=== PATIENT | male | born 1950 | race Caucasian/White ===

== ENCOUNTER 2016-11-24 12:10 | Emergency (ER) | payer MEDICARE, OTHER ==
[~2016-11-24] VITALS: Ht 185.4 cm; Wt 100.0 kg
[2016-11-24 12:13] VITALS: BP 139/72; PULSE 70; RESP 16; TEMP 98.7; O2SAT 95
--- NOTE | 2016-11-24 12:47 | PD ---
Physical Exam Time Seen by Provider: 12:44 Narrative 66 y/o male here for evaluation of L ear discomfort. he reports water got in his left ear 3-4 days ago and he has had muffled hearing since. Vital signs reviewed. Seen at triage desk. Awaiting bed placement. Data Data Last Documented VS Vital Signs Date Time Temp Pulse Resp B/P Pulse Ox O2 Delivery O2 Flow Rate FiO2 11/24/16 12:13 98.7 70 16 139/72 95 Room Air [facility] Medical Record Reviewed: Yes Supervised Visit with CARMENCITA: Santo Garvey Nov 24, 2016 12:47
--- NOTE | 2016-11-24 14:40 | PD ---
HPI Chief Complaint: ENT Complaint Time Seen by Provider: 14:26 Travel History International Travel<30 days: No Contact w/Intl Traveler<30days: No Traveled to known affect area: No History of Present Illness HPI 66-year-old male presents to [facility] department for evaluation of difficulty hearing out of his left ear. Patient states he normally wears hearing aids but he got into the water 2-3 days ago and since then he feels as though his hearing has gotten worse. He attempted using a Q-tip which only worsen this. Denies any pain. No fever chills. No injury. No other symptoms to report. PFSH Past Medical History Cardiovascular Problems: Yes (HTN, HYPERCHOLESTEROLEMIA, CARDIOVASCULAR STENTS X 2) Social History Tobacco Use: No Allergies-Medications (Allergen,Severity, Reaction): Coded Allergies: No Known Allergies (Unverified , 11/24/16) Review of Systems Except as stated in HPI: all other systems reviewed are Neg Physical Exam Narrative GENERAL: Well-nourished, well-developed elderly male patient, in no acute distress HEAD: Normocephalic. Atraumatic. No mastoid tenderness. EARS: Bilateral pinnae and external canals appear within normal limits. The right tympanic membranes without erythema, dullness or perforation. The left tympanic membrane view is obscured due to large amount of cerumen. After this has been removed and irrigation, the canal is erythematous. Membrane is dull but intact. EYES: No scleral icterus. No injection or drainage. NECK: Supple, trachea midline. No JVD or lymphadenopathy. CARDIOVASCULAR: Regular rate and rhythm without murmurs, gallops, or rubs. RESPIRATORY: Breath sounds equal bilaterally. No accessory muscle use. Data Data Last Documented VS Vital Signs Date Time Temp Pulse Resp B/P Pulse Ox O2 Delivery O2 Flow Rate FiO2 11/24/16 12:13 98.7 70 16 139/72 95 Room Air MDM Medical Decision Making Medical Screen Exam Complete: Yes Emergency Medical Condition: Yes Medical Record Reviewed: Yes Differential Diagnosis Cerumen impaction versus otitis media versus otitis externa versus perforated tympanic membrane Narrative Course 66-year-old male presents to emergency department for evaluation of difficulty hearing in his left ear, worse than normal. Patient has significant cerumen impaction. Ear is irrigated by the nurse and the tympanic membrane is revealed. Patient does report increased ability to hear. He'll be started on antibiotic drops for an otitis externa. He is encouraged to follow-up with his primary care provider and return immediately with any acute worsening of symptoms. Diagnosis Primary Impression: Impacted cerumen of left ear Additional Impression: Otitis externa of left ear Qualified Code: H60.92 - Otitis externa of left ear, unspecified chronicity, unspecified type Referrals: Primary Care Physician Patient Instructions: Cerumen Impaction (ED), General Instructions, Otitis Externa (ED) Additional Instructions: Avoid Q-tip use Follow-up with your primary care provider Do not use your hearing aid in your left ear until infection has resolved Return immediately with any acute worsening symptoms Med/Other Pt SpecificInfo: Prescription(s) given Disposition: 01 DISCHARGE HOME Condition: Stable Charlene Meng Nov 24, 2016 14:40
== END 2016-11-24 14:56 | disposition home or self-care (01) ==
LOC: NEPK 12:10
DX: H61.22 Impacted cerumen, left ear (principal); H60.92 Unspecified otitis externa, left ear; I10 Essential (primary) hypertension; E78.00 Pure hypercholesterolemia, unspecified
CPT/HCPCS: 99283

== ENCOUNTER 2017-09-09 19:52 | Emergency (ER) | payer MEDICARE, OTHER ==
[~2017-09-09] VITALS: Ht 185.4 cm; Wt 100.0 kg
[2017-09-09 19:59] VITALS: BP 135/79; PULSE 70; RESP 20; TEMP 98.5; O2SAT 96
[2017-09-09] MEDS ORDERED: AMLO10 PO (20:09)
[2017-09-09] MEDS ORDERED: blood thinner (20:09)
[2017-09-09] MEDS ORDERED: metoprolol PO (20:09)
--- NOTE | 2017-09-09 20:10 | PD ---
HPI Chief Complaint: Nosebleed Time Seen by Provider: 19:59 Travel History International Travel<30 days: No Contact w/Intl Traveler<30days: No Traveled to known affect area: No History of Present Illness HPI 67-year-old male presents emergency department for evaluation of epistaxis that began approximately 1 hour ago. Patient states he is unable to get the nosebleed to stop. He states this has happened once before and he required packing. Patient denies any trauma. Denies any pain. Denies any recent illness or fever. He states there was nothing out of the ordinary that occurred prior to this. He is on a anticoagulant but is uncertain which one. He denies any other symptoms of bleeding. He has no other symptoms to report. [facility] Past Medical History Cardiovascular Problems: Yes (HTN, HYPERCHOLESTEROLEMIA, CARDIOVASCULAR STENTS X 2) High Cholesterol: Yes Hypertension: Yes Tetanus Vaccination: < 5 Years Influenza Vaccination: Yes Social History Alcohol Use: No Tobacco Use: No Substance Use: No (hx when younger) Allergies-Medications (Allergen,Severity, Reaction): Coded Allergies: No Known Allergies (Unverified Allergy, Unknown, 09/10/17) Reported Meds & Prescriptions Reported Meds & Active Scripts Active Reported Bupropion HCl ER 24 HR (Bupropion HCl) 150 Mg Tab 150 Mg PO DAILY Donepezil 5 Mg Tab 5 Mg PO HS Citalopram (Citalopram Hydrobromide) 10 Mg Tab 10 Mg PO DAILY Atorvastatin (Atorvastatin Calcium) 40 Mg Tab 40 Mg PO HS Metoprolol Succinate ER 24 HR (Metoprolol Succinate) 100 Mg Tab 100 Mg PO DAILY Valsartan-Hydrochlorothiazide 80-12.5 Mg Tab 1 Tab PO DAILY Aspirin 81 Mg Chew 81 Mg CHEW DAILY Norvasc (Amlodipine Besylate) 10 Mg Tab Mg PO DAILY Review of Systems Except as stated in HPI: all other systems reviewed are Neg Physical Exam Narrative GENERAL: Well-nourished, well-developed male patient in no acute distress SKIN: Focused skin assessment warm/dry. HEAD: Normocephalic. Atraumatic EYES: No scleral icterus. No injection or drainage. ENT: Mucosa pink and moist. No erythema or exudates. No uvular edema. No uvular , palatal, or tonsillar deviation. Airway patent. Nasal turbinates appear normal with nasal blood, without purulent drainage or septal hematoma. Active bleeding from both nares. NECK: Supple, trachea midline. No JVD or lymphadenopathy. CARDIOVASCULAR: Regular rate and rhythm without murmurs, gallops, or rubs. RESPIRATORY: Breath sounds equal bilaterally. No accessory muscle use. GASTROINTESTINAL: Abdomen soft, non-tender, nondistended. MUSCULOSKELETAL: No cyanosis, or edema. BACK: Nontender without obvious deformity. No CVA tenderness. Data Data Last Documented VS Vital Signs Date Time Temp Pulse Resp B/P (MAP) Pulse Ox O2 Delivery O2 Flow Rate FiO2 09/09/17 19:59 98.5 70 20 135/79 (97) 96 Orders Orders Complete Blood Count With Diff (09/09/17 20:09) Basic Metabolic Panel (Bmp) (09/09/17 20:09) Coag Profile (09/09/17 20:09) Ed Discharge Order (09/09/17 21:16) Labs Laboratory Tests Test 09/09/17 20:17 White Blood Count 7.4 TH/MM3 Red Blood Count 4.71 MIL/MM3 Hemoglobin 14.7 GM/DL Hematocrit 43.7 % Mean Corpuscular Volume 92.7 FL Mean Corpuscular Hemoglobin 31.2 PG Mean Corpuscular Hemoglobin Concent 33.7 % Red Cell Distribution Width 14.5 % Platelet Count 279 TH/MM3 Mean Platelet Volume 8.3 FL Neutrophils (%) (Auto) 57.7 % Lymphocytes (%) (Auto) 22.1 % Monocytes (%) (Auto) 13.4 % Eosinophils (%) (Auto) 5.9 % Basophils (%) (Auto) 0.9 % Neutrophils # (Auto) 4.3 TH/MM3 Lymphocytes # (Auto) 1.6 TH/MM3 Monocytes # (Auto) 1.0 TH/MM3 Eosinophils # (Auto) 0.4 TH/MM3 Basophils # (Auto) 0.1 TH/MM3 CBC Comment DIFF FINAL Differential Comment Prothrombin Time 10.7 SEC Prothromb Time International Ratio 1.1 RATIO Activated Partial Thromboplast Time 23.9 SEC Blood Urea Nitrogen 25 MG/DL Creatinine 0.99 MG/DL Random Glucose 126 MG/DL Calcium Level 9.1 MG/DL Sodium Level 142 MEQ/L Potassium Level 4.1 MEQ/L Chloride Level 109 MEQ/L Carbon Dioxide Level 25.8 MEQ/L Anion Gap 7 MEQ/L Estimat Glomerular Filtration Rate 75 ML/MIN [facility] Medical Decision Making Medical Screen Exam Complete: Yes Emergency Medical Condition: Yes Medical Record Reviewed: Yes Differential Diagnosis Epistaxis traumatic versus nontraumatic versus hypo-coagulopathy versus sinus infection Narrative Course 67-year-old male presents emergency department for evaluation of epistaxis 1 hour. Patient appears without distress. He does have bleeding from both nares. Pressure is held for 20 minutes however bleeding is not resolved. Rhino Rocket's are inserted into each naris without difficulty. Patient is monitored. Bleeding seems to have stopped. He is counseled on care. He is encouraged to return immediately with acute worsening of symptoms. Patient is advised to follow-up with his primary and manager heart failure within the next 2-3 days. Diagnosis Primary Impression: Epistaxis not due to trauma Referrals: Ear / Nose / Throat Specialist Primary Care Physician Patient Instructions: Epistaxis (DC), General Instructions Additional Instructions: Contact her primary care provider and follow-up with the manager heart failure within the next 3 days Return immediately with acute worsening symptoms Do not pull on the Rhino Rocket are removed on your own Med/Other Pt SpecificInfo: No Change to Meds Disposition: 01 DISCHARGE HOME Condition: Stable TaqueriaCharlene MARIN Sep 09, 2017 20:10
[2017-09-09 20:26] LABS: AUTOMATED NEUTROPHIL # 4.3 TH/MM3 (1.8-7.7); BASOPHIL # 0.1 TH/MM3 (0-0.2); BASOPHIL % 0.9 % (0.0-2.0); EOSINOPHIL # 0.4 TH/MM3 (0-0.4); EOSINOPHIL % 5.9 % (0.0-4.0); HEMATOCRIT 43.7 % (39.0-51.0); HEMOGLOBIN 14.7 GM/DL (13.0-17.0); LYMPH % 22.1 % (9.0-44.0); LYMPHOCYTE # 1.6 TH/MM3 (1.0-4.8); MEAN CELL VOLUME 92.7 FL (80.0-100.0); MEAN CORPUSCULAR HEMOGLOBIN 31.2 PG (27.0-34.0); MEAN CORPUSCULAR HGB CONC 33.7 % (32.0-36.0); MEAN PLATELET VOLUME 8.3 FL (7.0-11.0); MONO % 13.4 % (0.0-8.0); NEUT % 57.7 % (16.0-70.0); PLATELET COUNT 279 TH/MM3 (150-450); RED BLOOD COUNT 4.71 MIL/MM3 (4.50-5.90); RED CELL DISTRIBUTION WIDTH 14.5 % (11.6-17.2); WHITE BLOOD COUNT 7.4 TH/MM3 (4.0-11.0)
[2017-09-09 20:38] LABS: INTERNATIONAL NORMALIZED RATIO 1.1 RATIO; PROTHROMBIN TIME - PATIENT 10.7 SEC (9.8-11.6)
[2017-09-09 21:00] LABS: BICARBONATE 25.8 MEQ/L (21.0-32.0); CALCIUM 9.1 MG/DL (8.5-10.1); CREATININE 0.99 MG/DL (0.60-1.30)
[2017-09-10] MEDS ORDERED: DONE5TAB7 PO (08:19)
[2017-09-10] MEDS ORDERED: ASPI-516 CHEW (08:19)
[2017-09-10] MEDS ORDERED: VALS80TA2 PO (08:19)
[2017-09-10] MEDS ORDERED: BUPR150T3 PO (08:19)
[2017-09-10] MEDS ORDERED: ATOR40TA16 PO (08:19)
[2017-09-10] MEDS ORDERED: CITA10TA4 PO (08:19)
[2017-09-10] MEDS ORDERED: METO1TAB43 PO (08:19)
== END 2017-09-09 22:18 | disposition home or self-care (01) ==
LOC: NEPD 19:52
DX: R04.0 Epistaxis (principal); E78.00 Pure hypercholesterolemia, unspecified; I10 Essential (primary) hypertension
CPT/HCPCS: 30901; 80048; 85025; 85610; 85730

== ENCOUNTER 2017-09-10 07:55 | Observation (INO) | payer MEDICARE, OTHER ==
[2017-09-10] VITALS (11 sets, daily range): BP systolic 93–174; BP diastolic 62–82; PULSE 67–111; RESP 16–20; TEMP 98.3–100.3; O2SAT 94–98
[~2017-09-10] VITALS: Ht 185.4 cm; Wt 100.0 kg
[~2017-09-10 07:55] MED LIST: AMLO10 PO; blood thinner; metoprolol PO
[2017-09-10] MEDS ORDERED: METO1TAB43 PO (08:19)
[2017-09-10] MEDS ORDERED: DONE5TAB7 PO (08:19)
[2017-09-10] MEDS ORDERED: CITA10TA4 PO (08:19)
[2017-09-10] MEDS ORDERED: BUPR150T3 PO (08:19)
[2017-09-10] MEDS ORDERED: ATOR40TA16 PO (08:19)
[2017-09-10] MEDS ORDERED: VALS80TA2 PO (08:19)
[2017-09-10] MEDS ORDERED: ASPI-516 CHEW (08:19)
[2017-09-10] MEDS ORDERED: LIDOCAINE 1%/EPINEPHrine 1:100,000 SOLN 20 ML VIAL INFIL ONE (08:30)
--- NOTE | 2017-09-10 09:21 | PD ---
HPI Chief Complaint: ENT Complaint Time Seen by Provider: 08:12 Travel History International Travel<30 days: No Contact w/Intl Traveler<30days: No Traveled to known affect area: No History of Present Illness HPI 67-year-old male complains of nosebleed. Patient was seen in emergency room yesterday for nosebleed. Rhino Rocket was inserted bilaterally. Patient was discharged home. Patient was advised to follow with local physician and ENT. Patient on aspirin 81 mg daily. Patient has history of hypertension, hyperlipidemia, CAD status post stent placement. Patient states that he started having nosebleeds again this morning. Patient came back by EMS. Patient denies any headache. Patient denies any chest pain or shortness of breath. Patient denies abdominal pain. Patient denies any focal weakness or numbness of the extremity. PFSH Past Medical History Hx Anticoagulant Therapy: Yes Cardiovascular Problems: Yes ([place], HTN, STENTS ) High Cholesterol: Yes Hypertension: Yes Respiratory: Yes (SOB ) Social History Alcohol Use: No Tobacco Use: No Substance Use: No (hx when younger) Allergies-Medications (Allergen,Severity, Reaction): Coded Allergies: No Known Allergies (Unverified Adverse Reaction, Unknown, 09/10/17) Reported Meds & Prescriptions Reported Meds & Active Scripts Active Reported Bupropion HCl ER 24 HR (Bupropion HCl) 150 Mg Tab 150 Mg PO DAILY Donepezil 5 Mg Tab 5 Mg PO HS Citalopram (Citalopram Hydrobromide) 10 Mg Tab 10 Mg PO DAILY Atorvastatin (Atorvastatin Calcium) 40 Mg Tab 40 Mg PO HS Metoprolol Succinate ER 24 HR (Metoprolol Succinate) 100 Mg Tab 100 Mg PO DAILY Valsartan-Hydrochlorothiazide 80-12.5 Mg Tab 1 Tab PO DAILY Aspirin 81 Mg Chew 81 Mg CHEW DAILY [blood thinner] Norvasc (Amlodipine Besylate) 10 Mg Tab Mg PO DAILY [metoprolol] Mg PO DAILY Review of Systems General / Constitutional: No: Fever Eyes: No: Visual changes HENT: Positive: Nosebleed, No: Headaches Cardiovascular: No: Chest Pain or Discomfort Respiratory: No: Shortness of Breath Gastrointestinal: No: Abdominal Pain Genitourinary: No: Dysuria Musculoskeletal: No: Pain Skin: No Rash Neurologic: No: Weakness Psychiatric: No: Depression Endocrine: No: Polydipsia Hematologic/Lymphatic: No: Easy Bruising Physical Exam Narrative GENERAL: Well-nourished, well-developed patient. SKIN: Focused skin assessment warm/dry. HEAD: Normocephalic. EYES: No scleral icterus. No injection or drainage. NECK: Supple, trachea midline. No JVD or lymphadenopathy. CARDIOVASCULAR: Regular rate and rhythm without murmurs, gallops, or rubs. RESPIRATORY: Breath sounds equal bilaterally. No accessory muscle use. GASTROINTESTINAL: Abdomen soft, non-tender, nondistended. MUSCULOSKELETAL: No cyanosis, or edema. BACK: Nontender without obvious deformity. No CVA tenderness. Neurologic exam: Patient is awake and alert oriented 3. No obvious focal neurological deficit. Patient has Rhino Rocket in both sides of the nose. Small amount of reddish fluid discharge from both sides of the nose. No active bleeding in the back of the throat. Data Data Last Documented VS Vital Signs Date Time Temp Pulse Resp B/P (MAP) Pulse Ox O2 Delivery O2 Flow Rate FiO2 09/10/17 09:11 68 20 104/65 (78) 95 Room Air Orders Orders Lidocai-Epi 1%-1:100,000 Inj (Xylocaine- (09/10/17 08:30) Electrocardiogram (09/10/17 09:15) Complete Blood Count With Diff (09/10/17 09:15) Comprehensive Metabolic Panel (09/10/17 09:15) Prothrombin Time / Inr (Pt) (09/10/17 09:15) Act Partial Throm Time (Ptt) (09/10/17 09:15) Chest, Single Ap (09/10/17:15) Iv Access Insert/Monitor (09/10/17:15) Ecg Monitoring (09/10/17 09:15) Oximetry (09/10/17 09:15) Sodium Chlor 0.9% 1000 Ml Inj (Ns 1000 M (09/10/17 09:30) Ceftriaxone Inj (Rocephin Inj) (09/10/17 09:30) Labs Laboratory Tests Test 09/10/17:18 White Blood Count 16.2 TH/MM3 Red Blood Count 4.01 MIL/MM3 Hemoglobin 12.6 GM/DL Hematocrit 37.0 % Mean Corpuscular Volume 92.3 FL Mean Corpuscular Hemoglobin 31.4 PG Mean Corpuscular Hemoglobin Concent 34.1 % Red Cell Distribution Width 13.9 % Platelet Count 274 TH/MM3 Mean Platelet Volume 8.6 FL Neutrophils (%) (Auto) 77.6 % Lymphocytes (%) (Auto) 11.7 % Monocytes (%) (Auto) 9.6 % Eosinophils (%) (Auto) 0.7 % Basophils (%) (Auto) 0.4 % Neutrophils # (Auto) 12.6 TH/MM3 Lymphocytes # (Auto) 1.9 TH/MM3 Monocytes # (Auto) 1.6 TH/MM3 Eosinophils # (Auto) 0.1 TH/MM3 Basophils # (Auto) 0.1 TH/MM3 CBC Comment AUTO DIFF Differential Comment AUTO DIFF CONFIRMED Prothrombin Time 11.2 SEC Prothromb Time International Ratio 1.1 RATIO Activated Partial Thromboplast Time 21.4 SEC Blood Urea Nitrogen 46 MG/DL Creatinine 1.13 MG/DL Random Glucose 129 MG/DL Total Protein 7.0 GM/DL Albumin 3.4 GM/DL Calcium Level 8.8 MG/DL Alkaline Phosphatase 78 U/L Aspartate Amino Transf (AST/SGOT) 14 U/L Alanine Aminotransferase (ALT/SGPT) 23 U/L Total Bilirubin 0.6 MG/DL Sodium Level 144 MEQ/L Potassium Level 4.4 MEQ/L Chloride Level 110 MEQ/L Carbon Dioxide Level 24.2 MEQ/L Anion Gap 10 MEQ/L Estimat Glomerular Filtration Rate 64 ML/MIN [facility] Medical Decision Making Medical Screen Exam Complete: Yes Emergency Medical Condition: Yes Interpretation(s) 10:25 AM. Last Impressions Chest X-Ray 09/10/17 0915 Signed Impressions: Service Date/Time: Sunday, September 10, 2017 09:29 - CONCLUSION: No acute disease. Guzman Salcedo MD 10:25 AM. CBC WBC 16.2. Hemoglobin 12.6 hematocrit 37.0. 77 neutrophil. BUN 46. Creatinine 1.13. Differential Diagnosis Differential diagnosis including epistaxis, vasovagal reaction, anemia. Narrative Course 67-year-old male with epistaxis. Patient was seen in emergency room yesterday and Rhino Rocket inserted both sides of the nose. Patient has recurrent bleeding again this morning. Rhino Rocket was removed. Patient started bleeding from left side. Rhino Rocket was inserted on the left side. Patient had a vasovagal syncope episode in the ED. Patient regained pulse pressure and consciousness in about 30 seconds. Patient denies any headache. Patient denies any chest pain or shortness of breath. Patient denies abdominal pain. Patient complaint generalized malaise. Normal saline solution 1 L IV bolus. Rocephin 1 g IV given. Diagnosis Primary Impression: Epistaxis Additional Impression: Syncope Henrique Luo MD Sep 10, 2017 09:21
[2017-09-10] MEDS ORDERED: cefTRIAXone INJ 1,000 MG in SODIUM CHLORIDE 0.9% INJ 100 ML IV ONE (09:30)
[2017-09-10] MEDS: SODIUM CHLOR 0.9% 1000 ML INJ 1,000 ML IV ONE ×2 (09:44→09:57)
[2017-09-10 09:50] LABS: AUTOMATED NEUTROPHIL # 12.6 TH/MM3 (1.8-7.7); BASOPHIL # 0.1 TH/MM3 (0-0.2); BASOPHIL % 0.4 % (0.0-2.0); EOSINOPHIL # 0.1 TH/MM3 (0-0.4); EOSINOPHIL % 0.7 % (0.0-4.0); HEMOGLOBIN 12.6 GM/DL (13.0-17.0); LYMPH % 11.7 % (9.0-44.0); LYMPHOCYTE # 1.9 TH/MM3 (1.0-4.8); MEAN CELL VOLUME 92.3 FL (80.0-100.0); MEAN CORPUSCULAR HEMOGLOBIN 31.4 PG (27.0-34.0); MEAN CORPUSCULAR HGB CONC 34.1 % (32.0-36.0); MEAN PLATELET VOLUME 8.6 FL (7.0-11.0); MONO % 9.6 % (0.0-8.0); MONOCYTE # 1.6 TH/MM3 (0-0.9); NEUT % 77.6 % (16.0-70.0); PLATELET COUNT 274 TH/MM3 (150-450); RED BLOOD COUNT 4.01 MIL/MM3 (4.50-5.90); RED CELL DISTRIBUTION WIDTH 13.9 % (11.6-17.2); WHITE BLOOD COUNT 16.2 TH/MM3 (4.0-11.0)
--- NOTE | 2017-09-10 09:52 | RADRPT ---
EXAM DATE/TIME: 09/10/2017 09:29 [place] COMPARISON: No previous studies available for comparison. INDICATIONS : Shortness of breath and epistaxis. MEDICAL HISTORY : None. SURGICAL HISTORY : Cardiac stents. ENCOUNTER: Initial ACUITY: 2 days PAIN SCORE: 0/10 LOCATION: Bilateral chest FINDINGS: A single view of the chest demonstrates the lungs to be symmetrically aerated without evidence of mas s, infiltrate or effusion. The cardiomediastinal contours are unremarkable. Osseous structures are intact. CONCLUSION: No acute disease. Guzman Salcedo MD on September 10, 2017 at 9:49 Board Certified Radiologist. This report was verified electronically.
[2017-09-10 09:58] LABS: INTERNATIONAL NORMALIZED RATIO 1.1 RATIO; PROTHROMBIN TIME - PATIENT 11.2 SEC (9.8-11.6)
[2017-09-10 10:08] LABS: ALBUMIN 3.4 GM/DL (3.4-5.0); ALT (GPT) 23 U/L (12-78); AST (GOT) 14 U/L (15-37); BICARBONATE 24.2 MEQ/L (21.0-32.0); BLOOD UREA NITROGEN 46 MG/DL (7-18); CALCIUM 8.8 MG/DL (8.5-10.1); CHLORIDE 110 MEQ/L (98-107); CREATININE 1.13 MG/DL (0.60-1.30); GLOMERULAR FILTRATION RATE 64 ML/MIN (>89); GLUCOSE,RANDOM 129 MG/DL (74-106); SODIUM (NA) 144 MEQ/L (136-145)
[2017-09-10 10:10] LABS: ALKALINE PHOSPHATASE 78 U/L (45-117); TOTAL BILIRUBIN ADULT 0.6 MG/DL (0.2-1.0)
[2017-09-10] MEDS ORDERED: IODIXANOL 320 MG/ML 50 ML VIAL (for RAD SPEC) I-ARTERIAL ONE (10:38)
[2017-09-10] MEDS ORDERED: SENNOSIDES 8.6 MG TAB PO PRN (10:45)
[2017-09-10] MEDS ORDERED: BISACODYL 10 MG SUPP RECTAL PRN (10:45)
[2017-09-10] MEDS ORDERED: MAGNESIUM HYDROXIDE SUSP 30 ML CUP PO PRN (10:45)
[2017-09-10] MEDS ORDERED: NALOXONE HCL 0.4 MG/ML AMP IV PUSH PRN (10:45)
[2017-09-10] MEDS ORDERED: SODIUM CHLORIDE 0.9% FLUSH 10 ML FLUSH IV FLUSH PRN (10:45)
[2017-09-10] MEDS ORDERED: LACTULOSE SYRUP 20 GM/30 ML CUP PO PRN (10:45)
--- NOTE | 2017-09-10 13:53 | MB ---
cc: Lloyd Sol MD DATE: 09/10/2017 HISTORY OF PRESENT ILLNESS: He is a 67-year-old gentleman with recurrent epistaxis from the left nostril, on aspirin therapy, but no other anticoagulant. No alcohol history. No coagulation issues of known. PHYSICAL EXAMINATION: HEENT: Exam today revealed, face, ears within normal limits. Nasal cavity revealed packing in the left side, which is a balloon with 2 balloons on the left side with some minor bleeding. The balloons are inflated more significantly and the bleeding stopped. The oral cavity is clear. NECK: Soft, supple. No masses noted. ASSESSMENT AND PLAN: Recurrent difficult epistaxis, which is likely now controlled. Okay to treat this as an outpatient if there are no other significant medical problems and the bleeding has stopped by the packing, he could be discharged tomorrow for followup in the office on Monday. MD CLINTON Boyer/TL , 01:33 PM , 01:51 PM
--- NOTE | 2017-09-10 14:13 | EKG ---
Date Performed: 09/10/2017 Time Performed: 09:26:22 PTAGE: 67 years EKG: Sinus rhythm NORMAL ECG NO PREVIOUS TRACING DOCTOR: John Scott Interpretating Date/Time 09/10/2017 14:12:33
[2017-09-10] MEDS: ACETAMINOPHEN 325 MG TAB PO PRN (21:35)
[2017-09-10] MEDS: ATORVASTATIN 40 MG TAB PO SCH (21:35)
[2017-09-10] MEDS: DONEPEZIL HCL 5 MG TAB PO SCH (21:35)
[2017-09-10] MEDS: DOCUSATE SODIUM 50 MG/SENNA 8.6 MG TAB PO SCH (21:35)
[2017-09-10] MEDS: SODIUM CHLORIDE 0.9% FLUSH 10 ML FLUSH IV FLUSH SCH (21:37)
[2017-09-11] VITALS (13 sets, daily range): BP systolic 121–143; BP diastolic 66–85; PULSE 72–114; RESP 16–20; TEMP 98–99.8; O2SAT 90–97
[2017-09-11 05:42] LABS: BASOPHIL % 0.2 % (0.0-2.0); EOSINOPHIL % 0.1 % (0.0-4.0); HEMATOCRIT 34.4 % (39.0-51.0); HEMOGLOBIN 11.5 GM/DL (13.0-17.0); INTERNATIONAL NORMALIZED RATIO 1.1 RATIO; LYMPH % 6.5 % (9.0-44.0); LYMPHOCYTE # 1.2 TH/MM3 (1.0-4.8); MEAN CORPUSCULAR HEMOGLOBIN 30.7 PG (27.0-34.0); MEAN CORPUSCULAR HGB CONC 33.4 % (32.0-36.0); MEAN PLATELET VOLUME 8.8 FL (7.0-11.0); MONOCYTE # 2.2 TH/MM3 (0-0.9); NEUT % 81.2 % (16.0-70.0); PLATELET COUNT 271 TH/MM3 (150-450); PROTHROMBIN TIME - PATIENT 11.4 SEC (9.8-11.6); RED BLOOD COUNT 3.74 MIL/MM3 (4.50-5.90); RED CELL DISTRIBUTION WIDTH 14.2 % (11.6-17.2); WHITE BLOOD COUNT 18.5 TH/MM3 (4.0-11.0)
[2017-09-11 06:04] LABS: BICARBONATE 24.5 MEQ/L (21.0-32.0); CALCIUM 8.9 MG/DL (8.5-10.1); CREATININE 0.86 MG/DL (0.60-1.30)
[2017-09-11 06:51] LABS: LYMPHOCYTES 3 % (9-44); MONOCYTES 7 % (0-8); NEUTROPHIL # MANUAL DIFF 16.5 TH/MM3 (1.8-7.7); POLYS (SEG NEUTROPHILS) 89 % (16-70)
[2017-09-11] MEDS ORDERED: NON-FORMULARY DRUG (Valsartan-Hydrochlorothiazide 1 TAB) PO SCH (09:00)
--- NOTE | 2017-09-11 09:00 | HHI.HP ---
History of Present Illness Primary Care Physician Unknown Admission Diagnosis Epistaxis. Syncope. Diagnoses: (1) Epistaxis Diagnosis: Principal (Heidy Aldridge) Review of Systems Ears, nose, mouth, throat: COMPLAINS OF: Epistaxis (Heidy Aldridge) Past Family Social History Allergies: Coded Allergies: No Known Allergies (Unverified Allergy, Unknown, 09/10/17) Past Medical History HTN HLD CAD w/ stents Reported Medications Bupropion HCl ER 24 HR (Bupropion HCl) 150 Mg Tab 150 Mg PO DAILY Donepezil 5 Mg Tab 5 Mg PO HS Citalopram (Citalopram Hydrobromide) 10 Mg Tab 10 Mg PO DAILY Atorvastatin (Atorvastatin Calcium) 40 Mg Tab 40 Mg PO HS Metoprolol Succinate ER 24 HR (Metoprolol Succinate) 100 Mg Tab 100 Mg PO DAILY Valsartan-Hydrochlorothiazide 80-12.5 Mg Tab 1 Tab PO DAILY Aspirin 81 Mg Chew 81 Mg CHEW DAILY [blood thinner] Norvasc (Amlodipine Besylate) 10 Mg Tab Mg PO DAILY [metoprolol] Mg PO DAILY Active Ordered Medications Current Medications Medications (Trade) Dose Ordered Sig/Evelyn Route Start Time Stop Time Status Last Admin (NS Flush) 2 ml UNSCH PRN IV FLUSH 09/10/17 10:45 (NS Flush) 2 ml BID IV FLUSH 09/10/17 21:00 09/10/17 21:37 (Tylenol) 650 mg Q4H PRN PO 09/10/17 10:45 09/10/17 21:35 (Narcan Inj) 0.4 mg UNSCH PRN IV PUSH 09/10/17 10:45 (Marilyn-Colace) 1 tab BID PO 09/10/17 21:00 09/10/17 21:35 (Milk Of Magnesia Liq) 30 ml Q12H PRN PO 09/10/17 10:45 (Senokot) 17.2 mg Q12H PRN PO 09/10/17 10:45 (Dulcolax Supp) 10 mg DAILY PRN RECTAL 09/10/17 10:45 (Lactulose Liq) 30 ml DAILY PRN PO 09/10/17 10:45 (Flu (Quadrivalent) Vaccine Inj) 0.5 ml ONCE ONCE IM 09/11/17 10:00 4/30/18 10:01 (Lipitor) 40 mg HS PO 09/10/17 21:00 09/10/17 21:35 (Wellbutrin Sr) 150 mg DAILY PO 09/11/17 09:00 (CeleXA) 10 mg DAILY PO 09/11/17 09:00 (Aricept) 5 mg HS PO 09/10/17 21:00 09/10/17 21:35 (Toprol Xl) 100 mg DAILY PO 09/11/17 09:00 (Diovan) 80 mg DAILY PO 09/11/17 09:00 (Microzide) 12.5 mg DAILY PO 09/11/17 09:00 Social History Denies Etoh, Tobacco (Oly,Heidy MARIN) Physical Exam Vital Signs Vital Signs Date Time Temp Pulse Resp B/P (MAP) Pulse Ox O2 Delivery O2 Flow Rate FiO2 09/11/17 07:44 98.0 107 16 130/74 (92) 96 09/11/17 04:12 99.7 104 16 139/79 (99) 94 09/11/17 00:41 99.8 114 16 130/83 (99) 94 09/10/17 23:00 96 09/10/17 19:57 100.3 111 16 136/81 (99) 94 09/10/17 16:06 162/80 (107) 09/10/17 16:01 103 09/10/17 16:00 98.8 102 18 174/82 (112) 94 09/10/17 11:54 09/10/17 11:45 98.3 67 18 133/67 (89) 97 09/10/17 11:20 88 18 131/72 (91) 98 Room Air 09/10/17 09:11 68 20 104/65 (78) 95 Room Air 09/10/17 09:08 82 18 93/62 (72) 95 Room Air Physical Exam GENERAL: This is a well-nourished, well-developed patient, in no apparent distress. EYES: Pupils equal round and reactive. ENT: left nare with rhino rocket bleeding, right oozing NECK: Trachea midline. CARDIOVASCULAR: Regular rate and rhythm without murmurs, gallops, or rubs. RESPIRATORY: Clear to auscultation. Breath sounds equal bilaterally. No wheezes , rales, or rhonchi. GASTROINTESTINAL: Abdomen soft, non-tender, nondistended. MUSCULOSKELETAL: Extremities without clubbing, cyanosis, or edema. No joint tenderness, effusion, or edema noted. No calf tenderness. Negative Homans sign bilaterally. NEUROLOGICAL: Awake and alert normal speech Laboratory Laboratory Tests Test 09/10/17 09:18 09/11/17 04:43 White Blood Count 16.2 18.5 Red Blood Count 4.01 3.74 Hemoglobin 12.6 11.5 Hematocrit 37.0 34.4 Mean Corpuscular Volume 92.3 92.0 Mean Corpuscular Hemoglobin 31.4 30.7 Mean Corpuscular Hemoglobin Concent 34.1 33.4 Red Cell Distribution Width 13.9 14.2 Platelet Count 274 271 Mean Platelet Volume 8.6 8.8 Neutrophils (%) (Auto) 77.6 81.2 Lymphocytes (%) (Auto) 11.7 6.5 Monocytes (%) (Auto) 9.6 12.0 Eosinophils (%) (Auto) 0.7 0.1 Basophils (%) (Auto) 0.4 0.2 Neutrophils # (Auto) 12.6 15.0 Lymphocytes # (Auto) 1.9 1.2 Monocytes # (Auto) 1.6 2.2 Eosinophils # (Auto) 0.1 0.0 Basophils # (Auto) 0.1 0.0 CBC Comment AUTO DIFF AUTO DIFF Differential Comment AUTO DIFF CONFIRMED FINAL DIFF MANUAL Prothrombin Time 11.2 11.4 Prothromb Time International Ratio 1.1 1.1 Activated Partial Thromboplast Time 21.4 Blood Urea Nitrogen 46 31 Creatinine 1.13 0.86 Random Glucose 129 165 Total Protein 7.0 Albumin 3.4 Calcium Level 8.8 8.9 Alkaline Phosphatase 78 Aspartate Amino Transf (AST/SGOT) 14 Alanine Aminotransferase (ALT/SGPT) 23 Total Bilirubin 0.6 Sodium Level 144 142 Potassium Level 4.4 3.3 Chloride Level 110 109 Carbon Dioxide Level 24.2 24.5 Anion Gap 10 9 Estimat Glomerular Filtration Rate 64 88 Differential Total Cells Counted 100 Neutrophils % (Manual) 89 Lymphocytes % 3 Monocytes % 7 Eosinophils % 1 Neutrophils # (Manual) 16.5 Platelet Estimate NORMAL Platelet Morphology Comment NORMAL Red Cell Morphology Comment NORMAL (Heidy Aldridge) Result Diagram: 09/11/1744209/11/17442 Imaging Last 72 hours Impressions Chest X-Ray 09/10/17 0915 Signed Impressions: Service Date/Time: Sunday, September 10, 2017 09:29 - CONCLUSION: No acute disease. Guzman Salcedo MD (Heidy AldridgeP) Caprini VTE Risk Assessment VTE Pharm Contraindication: Active bleeding Caprini Risk Assessment Model Point Value = 1 Point Value = 2 Point Value = 3 Point Value = 5 Age 41-60 Minor surgery BMI > 25 kg/m2 Swollen legs Varicose veins or History of unexplained or recurrent spontaneous Oral contraceptives or hormone replacement Sepsis (< 1 month) Serious lung disease, including pneumonia (< 1 month) Abnormal pulmonary function Acute myocardial infarction Congestive heart failure (< 1 month) History of inflammatory bowel disease Medical patient at bed rest Age 61-74 Arthroscopic surgery Major open surgery (> 45 min) Laparoscopic surgery (> 45 min) Malignancy Confined to bed (> 72 hours) Immobilizing plaster cast Central venous access Age >= 75 History of VTE Family history of VTE Factor V Leiden Prothrombin [id number] Lupus anticoagulant Anticardiolipin antibodies Elevated serum homocysteine Heparin-induced thrombocytopenia Other congenital or acquired thrombophilia Stroke (< 1 month) Elective arthroplasty Hip, pelvis, or leg fracture Acute spinal cord injury (< 1 month) Prophylaxis Regimen Total Risk Factor Score Risk Level Prophylaxis Regimen 0-1 Low Early ambulation 2 Moderate Order ONE of the following: *Sequential Compression Device (SCD) *Heparin 5000 units SQ BID 3-4 Higher Order ONE of the following medications: *Heparin 5000 units SQ TID *Enoxaparin/Lovenox 40 mg SQ daily (WT < 150 kg, CrCl > 30 mL/min) *Enoxaparin/Lovenox 30 mg SQ daily (WT < 150 kg, CrCl > 10-29 mL/min) *Enoxaparin/Lovenox 30 mg SQ BID (WT < 150 kg, CrCl > 30 mL/min) AND/OR *Sequential Compression Device (SCD) 5 or more Highest Order ONE of the following medications: *Heparin 5000 units SQ TID (Preferred with Epidurals) *Enoxaparin/Lovenox 40 mg SQ daily (WT < 150 kg, CrCl > 30 mL/min) *Enoxaparin/Lovenox 30 mg SQ daily (WT < 150 kg, CrCl > 10-29 mL/min) *Enoxaparin/Lovenox 30 mg SQ BID (WT < 150 kg, CrCl > 30 mL/min) AND *Sequential Compression Device (SCD) (Heidy Aldridge) Caprini VTE Risk Assessment: No/Low Risk (score <= 1) VTE Pharm Contraindication: Hemorrhage (Tiago Stern DO) Assessment and Plan Problem List: (1) Epistaxis ICD Codes: R04.0 - Epistaxis Status: Acute Plan: Seen by ENT, left rhino rocket in place still oozing throughout night. Left JOSE to be done later. (2) HTN (hypertension) ICD Codes: I10 - Essential (primary) hypertension Plan: Cont home medication Discharge Planning Home when cleared by ENT (Heidy Aldridge) Heidy Aldridge Sep 11, 2017 09:00 Tiago Stern DO Sep 11, 2017 14:34
[2017-09-11] MEDS: SODIUM CHLORIDE 0.9% FLUSH 10 ML FLUSH IV FLUSH SCH ×2 (09:21→21:49)
[2017-09-11] MEDS: DOCUSATE SODIUM 50 MG/SENNA 8.6 MG TAB PO SCH ×2 (09:26→21:49)
[2017-09-11] MEDS: METOPROLOL SUCCINATE 50 MG EXTENDED RELEASE TAB PO SCH (09:27)
[2017-09-11] MEDS: buPROPion HCL 150 MG SUSTAINED RELEASE TAB PO SCH (09:27)
[2017-09-11] MEDS: CITALOPRAM HYDROBROMIDE 20 MG TAB PO SCH (09:28)
[2017-09-11] MEDS ORDERED: INFLUENZA VIRUS VACCINE (QUADRIVALENT) 0.5 ML SYR IM ONE (10:00)
[2017-09-11] MEDS ORDERED: MIDAZOLAM HCL 5 MG/5 ML VIAL ONE (10:46)
[2017-09-11] MEDS ORDERED: fentaNYL CITRATE 250 MCG/5 ML AMP ONE (10:46)
[2017-09-11] MEDS ORDERED: VERAPAMIL HCL 5 MG/2 ML VIAL ONE (11:58)
--- NOTE | 2017-09-11 12:43 | PD.RAD ---
Post Procedure Progress Note Pre Procedure Diagnosis: (1) Epistaxis Post Procedure Diagnosis: (1) Epistaxis Procedure Date: Sep 11, 2017 Supervising Radiologist: Xavier Chvaes Estimated blood loss: 5cc Anesthesia: Local, Conscious Sedation Plan of Activity Patient to Unit: ROPU Patient Condition: Good Additional Comments: Left internal and external carotid angio completed. No avm or pseudoaneurysm evident. Left Imax embolization completed without difficulty. Pt. tolerated the procedure well Full dictated report to follow See PACS Report for procedural detail/treatment Xavier Chaves MD Sep 11, 2017 12:43
[2017-09-11] MEDS: VALSARTAN 80 MG TAB PO SCH (15:09)
[2017-09-11] MEDS: HYDROCHLOROTHIAZIDE 12.5 MG CAP PO SCH (15:09)
--- NOTE | 2017-09-11 16:18 | RADRPT ---
EXAM DATE/TIME: 09/11/2017 11:34 [facility] COMPARISON: F/U THRU EXISTING CATHETER, September 11, 2017, 0:00. INDICATIONS : Patient presents with persistant epitaxis in need of internal maxillary artery angiogram and emboliza tion. MEDICAL HISTORY : HTN HLD CAD Epitaxis SURGICAL HISTORY : CAD w/ stents ENCOUNTER: Initial ACUITY: 1 day PAIN SCORE: 3/10 LOCATION: Left Nostril FLUORO TIME: 18.0 minutes IMAGE SERIES: 19 ACCESS SITE: Right Femoral artery SEDATION TIME: 75 minutes CONTRAST: 1.) 70 cc Visipaque (iodixanol) MEDICATION(S): 1.) 1.5 mg midazolam (Versed) IV 2.) 100 mcg fentanyl (Sublimaze) IV 3.) 10 mg Verapamil IV DEVICE(S): 1.) Left artery Internal maxillary PVA PROCEDURE : 1. Ultrasound-guided puncture of the access site. 2. Angiography of the access site prior to closure device. 3. Conscious sedation with continuous EKG and Oximetry monitoring. 4. Percutaneous closure of the access site. 5. Angiography of the left internal carotid 6. Angiography of the left external carotid 7. embolization of the left internal maxillary artery. The patient was evaluated prior to the procedure. There is packing within the left nostril. The risks, benefits and alternatives to the procedure were explained and verbal and written consent w as obtained. The site was prepped in sterile fashion. Full sterile technique was used, including ca p, mask, sterile gloves and gown and a large sterile sheet. Hand hygiene and 2% chlorhexidine and/or betadine/alcohol prep was utilized per protocol for cutaneous antisepsis. Sterile gel and sterile p robe cover were utilized for ultrasound guidance. The skin and subcutaneous tissues were infiltrated with local anesthetic solution. With ultrasound and fluoroscopic guidance the right common femoral artery was punctured and a vascula r sheath was placed. Angiography of the common femoral artery was performed for evaluation prior to percutaneous closure device placement. A KOLBY 2 catheter was advanced from the right groin up into the left common carotid. Angiography of the left internal and external carotid circulation was performed. Results: The bifurcation is widely patent. No aberrant communication between the internal and external circula tion was identified. No pseudoaneurysm or AVM was evident. The catheter was selectively advanced into the external carotid circulation. Selective injection of t he internal maxillary circulation was performed. Again, no filling of the internal circulation was se en with this injection. A 0.035 single internal glide catheter was parked in the origin of the external carotid circulation. A Prowler select catheter and 0.014 wire were passed through the glide catheter and out into the dist al internal maxillary circulation. Subselective embolization of the capillary bed feeding the posteri or nose was performed with 300-500 PVA. A followup angiogram demonstrated limited residual flow to the distal nasal capillary bed post proced ure. The patient tolerated the procedure well. The patient was neurologically intact post procedure. Hemostasis was obtained with the prescribed medicated closure device. Conscious sedation was perform ed with the prescribed dosages and duration as above in the presence of an independent trained radiol ogy nurse to assist in the monitoring of the patient. EKG and oximetry remained stable throughout e procedure. CONCLUSION: 1. Successful embolization of the left internal maxillary circulation for recurrent epistaxis. The pa tiecami tolerated the procedure well. Xavier Chaves MD on September 11, 2017 at 16:11 Board Certified Radiologist. This report was verified electronically.
[2017-09-11] MEDS: ATORVASTATIN 40 MG TAB PO SCH (21:49)
[2017-09-11] MEDS: DONEPEZIL HCL 5 MG TAB PO SCH (21:49)
[2017-09-12] VITALS: BP 108/67; PULSE 77; RESP 16; TEMP 101.3; O2SAT 93
[2017-09-12] MEDS: ACETAMINOPHEN 325 MG TAB PO PRN (00:12)
[2017-09-12 03:41] VITALS: BP 110/63; PULSE 75; RESP 16; TEMP 98.2; O2SAT 94
[2017-09-12 07:32] VITALS: BP 121/68; PULSE 75; RESP 18; TEMP 98.3; O2SAT 95
[2017-09-12 08:00] VITALS: PULSE 98
[2017-09-12] MEDS: DOCUSATE SODIUM 50 MG/SENNA 8.6 MG TAB PO SCH (09:00)
[2017-09-12] MEDS: SODIUM CHLORIDE 0.9% FLUSH 10 ML FLUSH IV FLUSH SCH (09:00)
[2017-09-12] MEDS: VALSARTAN 80 MG TAB PO SCH (09:24)
[2017-09-12] MEDS: HYDROCHLOROTHIAZIDE 12.5 MG CAP PO SCH (09:24)
[2017-09-12] MEDS: CITALOPRAM HYDROBROMIDE 20 MG TAB PO SCH (09:25)
[2017-09-12] MEDS: buPROPion HCL 150 MG SUSTAINED RELEASE TAB PO SCH (09:25)
[2017-09-12] MEDS: METOPROLOL SUCCINATE 50 MG EXTENDED RELEASE TAB PO SCH (09:26)
[2017-09-12 11:15] VITALS: BP 106/58; PULSE 75; RESP 19; TEMP 98.2; O2SAT 93
[2017-09-12 11:40] LABS: AUTOMATED NEUTROPHIL # 10.5 TH/MM3 (1.8-7.7); BASOPHIL # 0.1 TH/MM3 (0-0.2); BASOPHIL % 0.4 % (0.0-2.0); EOSINOPHIL % 0.2 % (0.0-4.0); HEMATOCRIT 29.1 % (39.0-51.0); HEMOGLOBIN 9.8 GM/DL (13.0-17.0); LYMPH % 11.8 % (9.0-44.0); LYMPHOCYTE # 1.6 TH/MM3 (1.0-4.8); MEAN CELL VOLUME 92.4 FL (80.0-100.0); MEAN CORPUSCULAR HGB CONC 33.5 % (32.0-36.0); MEAN PLATELET VOLUME 9.6 FL (7.0-11.0); MONO % 9.5 % (0.0-8.0); MONOCYTE # 1.3 TH/MM3 (0-0.9); NEUT % 78.1 % (16.0-70.0); PLATELET COUNT 204 TH/MM3 (150-450); RED BLOOD COUNT 3.15 MIL/MM3 (4.50-5.90); RED CELL DISTRIBUTION WIDTH 13.8 % (11.6-17.2); WHITE BLOOD COUNT 13.4 TH/MM3 (4.0-11.0)
[2017-09-12 12:02] LABS: BICARBONATE 28.5 MEQ/L (21.0-32.0); CALCIUM 8.8 MG/DL (8.5-10.1); CREATININE 1.02 MG/DL (0.60-1.30)
[2017-09-12 15:45] VITALS: BP 112/59; PULSE 73; RESP 19; TEMP 98; O2SAT 93
--- NOTE | 2017-09-12 17:08 | HHI.DS ---
Discharge Summary Admission Date Sep 10, 2017 at 10:37 Discharge Date: September 12, 2017 Admitting Diagnosis Epistaxis. Syncope. CBC/BMP: 09/12/17 1103 09/12/17 1103 Significant Findings Laboratory Tests Test 09/10/17 09:18 09/11/17 04:43 09/12/17 11:03 White Blood Count 16.2 TH/MM3 (4.0-11.0) 18.5 TH/MM3 (4.0-11.0) 13.4 TH/MM3 (4.0-11.0) Red Blood Count 4.01 MIL/MM3 (4.50-5.90) 3.74 MIL/MM3 (4.50-5.90) 3.15 MIL/MM3 (4.50-5.90) Hemoglobin 12.6 GM/DL (13.0-17.0) 11.5 GM/DL (13.0-17.0) 9.8 GM/DL (13.0-17.0) Hematocrit 37.0 % (39.0-51.0) 34.4 % (39.0-51.0) 29.1 % (39.0-51.0) Neutrophils (%) (Auto) 77.6 % (16.0-70.0) 81.2 % (16.0-70.0) 78.1 % (16.0-70.0) Monocytes (%) (Auto) 9.6 % (0.0-8.0) 12.0 % (0.0-8.0) 9.5 % (0.0-8.0) Neutrophils # (Auto) 12.6 TH/MM3 (1.8-7.7) 15.0 TH/MM3 (1.8-7.7) 10.5 TH/MM3 (1.8-7.7) Monocytes # (Auto) 1.6 TH/MM3 (0-0.9) 2.2 TH/MM3 (0-0.9) 1.3 TH/MM3 (0-0.9) Activated Partial Thromboplast Time 21.4 SEC (24.3-30.1) Blood Urea Nitrogen 46 MG/DL (7-18) 31 MG/DL (7-18) 42 MG/DL (7-18) Random Glucose 129 MG/DL (74-106) 165 MG/DL (74-106) 178 MG/DL (74-106) Aspartate Amino Transf (AST/SGOT) 14 U/L (15-37) Chloride Level 110 MEQ/L (98-107) 109 MEQ/L (98-107) 109 MEQ/L (98-107) Estimat Glomerular Filtration Rate 64 ML/MIN (>89) 88 ML/MIN (>89) 72 ML/MIN (>89) Lymphocytes (%) (Auto) 6.5 % (9.0-44.0) Neutrophils % (Manual) 89 % (16-70) Lymphocytes % 3 % (9-44) Neutrophils # (Manual) 16.5 TH/MM3 (1.8-7.7) Potassium Level 3.3 MEQ/L (3.5-5.1) Hospital Course Patient admitted ally persistent nose bleed, Rhino Rocket was inserted bilaterally was sent home, He returned later that day continuing to bleed. ENT consulted, he had on 09/11/17 Internal Maxillary artery angiogram with embolization. Bleeding subsided, he is DC home and is scheduled to fu with ENT on Monday. He will resume asa once bleeding has subsided. He did have noted drop in hgb while inpatient, 12.6, 11.5, 9.8 Pt Condition on Discharge: Stable Discharge Disposition: Discharge Home Discharge Instructions DIET: Follow Instructions for: As Tolerated, No Restrictions Activities you can perform: Regular-No Restrictions Follow up Referrals: Ear Nose Throat - 2 Days TO BE SEEN IN THE OFFICE ON MONDAY PCP Follow-up - [address] Stern Continued Medications: Amlodipine (Norvasc) 10 Mg Tab MG PO DAILY for Blood Pressure Management, #30 TAB 0 Refills Atorvastatin (Atorvastatin) 40 Mg Tab 40 MG PO HS for Cholesterol Management, TAB 0 Refills Bupropion HCl ER 24 HR (Bupropion HCl ER 24 HR) 150 Mg Tab 150 MG PO DAILY for Control Depression, TAB 0 Refills Citalopram (Citalopram) 10 Mg Tab 10 MG PO DAILY for Control Depression, TAB 0 Refills Donepezil (Donepezil) 5 Mg Tab 5 MG PO HS for Dementia, TAB 0 Refills Metoprolol Succinate ER 24 HR (Metoprolol Succinate ER 24 HR) 100 Mg Tab 100 MG PO DAILY, TAB 0 Refills Valsartan-Hydrochlorothiazide (Valsartan-Hydrochlorothiazide) 80-12.5 Mg Tab 1 TAB PO DAILY for Blood Pressure Management, TAB 0 Refills Discontinued Medications: Aspirin (Aspirin) 81 Mg Chew 81 MG CHEW DAILY, TAB 0 Refills Additional Information Hold Aspirin until bleeding has stopped and F/U by per diem registered nurse. Heidy Aldridge September 12, 2017 17:08
== END 2017-09-13 08:26 | disposition home or self-care (01) ==
LOC: NEPC 07:55 → NEDA 10:37 → NEPGCP 11:45
PROVIDERS: ADMIT Family Medicine; ATTEND Family Medicine
DX: R04.0 Epistaxis (principal); R55 Syncope and collapse; I10 Essential (primary) hypertension; I25.10 Atherosclerotic heart disease of native coronary artery without angina pectoris; E78.5 Hyperlipidemia, unspecified; Z79.899 Other long term (current) drug therapy; Z79.82 Long term (current) use of aspirin; Z95.5 Presence of coronary angioplasty implant and graft; Z23 Encounter for immunization
CPT/HCPCS: 36223; 36224; 36227; 36228; 61626; 71045; 75894; 76937; 80048; 80053; 85007; 85025; 85027; 85610; 85730; 93005; 96365; 99152; 99153; 99285; C1760; C1769; C1887; G0008; G0269; G0378; J0696; J2250; J3010; J7030; Q2038; Q9967; 90471; 90686